=== PATIENT | male | born 1960 | race Caucasian/White ===

== ENCOUNTER 2019-08-14 06:33 | Inpatient (IN) | payer OTHER ==
[~2019-08-14] VITALS: Ht 180.3 cm; Wt 81.6 kg
[2019-08-14] VITALS (7 sets, daily range): BP systolic 133–179; BP diastolic 76–99
--- NOTE | ~2019-08-14 | H ---
[facility] [place] [address] HISTORY AND PHYSICAL Name: AL RG CÉSAR Room #: 364-P [facility] IN M.R.#: [id number] Admission: 08/14/19 Attend Phys: Claudine Lopez MD Discharge: Date of : 64 Report #: [id number] THIS REPORT FOR: //name// CC: Junito Lopez DATE OF SERVICE: 08/14/2019 PRIMARY CARE PHYSICIAN: Dr. Edward Alexis. CHIEF COMPLAINT: 1. Intractable nausea, vomiting and diarrhea since 11:00 p.m. last night. 2. Right inguinal pain, severe early this morning. HISTORY OF PRESENT ILLNESS: The patient is a very pleasant 59-year-old gentleman who informs me that he had dinner last night and started having some right lower quadrant abdominal discomfort, but it was not severe enough, so he went on to continue his routine, but at 11:00 p.m., he started with intractable nausea and vomiting and all night, he has had significant nausea, vomiting and early this morning, he started with severe pain in his right inguinal area. The patient informs me that in 05/2019, he was diagnosed with having an inguinal hernia by his primary care physician, but it was pretty small and he was supposed to see the surgery outpatient as just a routine appointment and this has not caused him any problems until this morning, he started having severe pain. Around 11:00 when the nausea and vomiting got worse, he had reached home from grocery store after riding his bike and he noticed that the swelling has gotten bigger and worse when, but the pain got significantly worse early this morning and therefore his called the EMS and was brought to the hospital for further evaluation. In the Emergency Room, the patient had a stat CT scan of abdomen and pelvis and that indicated a herniated small bowel in the inguinal canal with asymmetric dilatation of the herniated loop within the upper scrotum with gas and stool with stool-filled loops of small bowel within the abdomen and pelvis. The hernia appears to contain both cecum and terminal ileum with obstruction at this site and therefore, Surgery was consulted by ER physician and Dr. Pollock was contacted by Dr. Morgan and they plan to take him to the operating room later this afternoon. The patient informs me that he has not had any fever, shaking chills or night sweats and he has not had any dysuria, frequency or urgency of urination either. He informs me that review of systems is also negative for any cough, sputum production, chest pain or any dyspnea at rest or with exertion. He denies any hematemesis, melena, hematochezia or any peptic ulcer disease or health problems related to that in fact. PAST MEDICAL HISTORY: Significant for: 1. Hypertension. 2. Benign prostatic hypertrophy. [address] [address] HISTORY AND PHYSICAL Name: AL RG CÉSAR Room #: 364-P ADM IN M.R.#: [id number] Admission: 08/14/19 Attend Phys: Claudine Lopez MD Discharge: Date of : 64 Report #: [id number] 3. Hyperlipidemia. PAST SURGICAL HISTORY: None. FAMILY HISTORY: The patient informs me that he was adopted and he has heard that he has siblings, but has not been able to communicate with either one of them. His emergency contact is his , Ms. Rox Rg, . I made an attempt to call her; however, went to [facility]. ALLERGIES: The patient has no known drug allergies. PERSONAL AND SOCIAL HISTORY: The patient smoked 1/4 of a pack per day until few years ago and he does not drink alcohol and he does use marijuana, but informs me that he has not done it recently. REVIEW OF SYSTEMS: Ten point review of system was done and was completely negative other than nocturia and frequency of urination, but absolutely no dysuria, hematuria and the patient denied any CVS, TITLE CURATIVE SPECIALIST or respiratory symptoms. GI was positive for nausea, vomiting and diarrhea, but no hematemesis, melena or hematochezia. The patient denies any skin rash or breakdown. Right inguinal pain is severe, but since he has gotten to the ER, abdominal discomfort is significantly improved. PHYSICAL EXAMINATION: VITAL SIGNS: The patient had temperature of 36.6, heart rate 73, respirations 16, blood pressure 178/99, and pulse oximeter 99% on room air when he presented at 06:33. At the time of examination, his temperature 36.6, heart rate 76, respirations 13, blood pressure 133/85, pulse oximetry 99% on room air. GENERAL: Alert and oriented to time, place and person, very pleasant 59-year-old gentleman who likes to go on tangent when asked questions; however, is able to answer most of the questions appropriately and is not in any acute cardiopulmonary distress. HEENT: Normocephalic, atraumatic. Pupils are equally round and reactive to light. Conjunctivae mild injection, but no discharge or drainage noted. Sclerae nonicteric. Oropharynx is clear. Mucous membranes are moist. NECK: Supple, no JVD, no lymphadenopathy. HEART: S1, S2, regular. No murmur, no S3, no S4. LUNGS: Clear to auscultation bilaterally without any crackles or wheezes. No chest wall tenderness elicited. ABDOMEN: The patient has mild epigastric discomfort, but mostly right lower quadrant discomfort, which is very significant. The patient has indurated hard right inguinal hernia, which is not reducible and the herniation is all the way to the scrotal area and both lower extremities without any edema and pedal pulses are intact. NEUROLOGIC: Completely nonfocal. [facility] [address] [place] [address] HISTORY AND PHYSICAL Name: AL RG CÉSAR Room #: 364-P ADM IN [facility].#: [id number] Admission: 08/14/19 Attend Phys: Claudine Lopez MD Discharge: Date of : 64 Report #: [id number] LABORATORY DATA: The patient had lactic acid of 0.6 and CBC with WBC elevated at 14,500 and no bandemia noted, 76.8% neutrophils cells noted. Hemoglobin 12.8 with normal red cell indices and platelet counts are mildly elevated at 454, which appears to be reactive thrombocytosis. Chemistries indicate sodium 139, potassium 4.0, chloride 103, bicarbonate 27, BUN 19, creatinine 1.0, GFR 77, glucose is 99, calcium 9.85, total bilirubin 0.2, AST 21, ALT 21, alkaline phosphatase 74, total protein 7.6, albumin 3.9 and lipase is 117. CT scan of the abdomen and pelvis was done with the lung bases and heart normal; liver, gallbladder, spleen, pancreas, adrenal glands, kidneys are normal. The patient has distal esophagus and stomach are normal. The patient has significant wall thickening of the urinary bladder and also has focal luminal narrowing of the herniated bowel along the inguinal canal with asymmetric dilatation of the herniated loops within the upper scrotum. Both cecum and terminal ileum are seen in hernia with obstruction at the site of entry. More distal colon is unremarkable. No free fluid or free air noted in the abdomen. Aorta and IVC are normal. CT pelvis otherwise is unremarkable except prostate is enlarged with hypertrophy of the median lobe and findings consistent with bladder outlet obstruction. ASSESSMENT AND PLAN: 1. Partial small-bowel obstruction with acute herniation of the small bowel and cecum in the right inguinal canal. 2. Mild dehydration that has resolved. 3. Bladder outlet obstruction with prostate enlargement and bladder wall thickening. 4. The patient is full code. 5. Hypertension. 6. Hyperlipidemia. 7. Deep venous thrombosis and gastrointestinal prophylaxis. We will use subcutaneous pneumatic compression devices for deep venous thrombosis prophylaxis and for gastrointestinal prophylaxis. Pepcid has been started. PLAN OF CARE: 1. The patient has already been seen by Dr. Pollock according to Dr. Morgan and is planned to go to the surgery this afternoon. We will keep the patient n.p.o. and will start antibiotics, Rocephin and Flagyl to cover obstructed bowel and after the surgery, the patient probably should not need prolonged antibiotic course. We will follow the WBC count and local exam and will need to be at the critical care tele or postoperatively depending on how he does in surgery. We will discuss with Dr. Pollock and to decide whether the patient needs to be in ICU or CCU postoperatively. 2. For hypertension, I would hold amlodipine for now and we will start hydralazine 10 mg IV q. 6 hours p.r.n. for systolic blood pressure greater than [facility] [address] [place] [address] HISTORY AND PHYSICAL Name: AL RG Room #: 364-P [facility] IN M.R.#: [id number] Admission: 08/14/19 Attend Phys: Claudine Lopez MD Discharge: Date of : 64 Report #: [id number] 160. The patient currently is normotensive and pain is well controlled and so the focus will be on pain management. 3. Hyperlipidemia. We will hold atorvastatin at the present time. 4. Benign prostatic hypertrophy with chronic bladder outlet obstruction. We will continue tamsulosin and finasteride. A Dobson catheter order has been written perioperatively to avoid any renal damage with postobstructive pathology as well as the patient will need a Dobson during surgery. We will recommend him to see Urology outpatient and a full code order has been written. was not present at the bedside, so I could not discuss the plan of care with her and I did discuss plan of care with the nurse as well as RN taking care of the patient as well as the ER provider and the patient himself. By: [id number] Claudine Lopez MD /nt
--- NOTE | ~2019-08-14 | O ---
[facility] [place] [address] [address] [place] [address] OPERATIVE REPORT Name: AL ALSTON Room #: 364-P ADM IN M.R.#: [id number] Admission: 08/14/19 Attend Phys: Claudine oLpez MD Discharge: Date of : 64 Report #: [id number] THIS REPORT FOR: cc: Edward Alexis MD, Kirk D. MD Patterson, Jonathan D. MD ~ CC: Junito Lopez DATE OF SERVICE: 08/14/2019 PREOPERATIVE DIAGNOSIS: Incarcerated right inguinal hernia. POSTOPERATIVE DIAGNOSIS: Incarcerated right inguinal hernia. OPERATION: Laparoscopic repair of incarcerated right inguinal hernia with mesh. SURGEON: Junito Pollock MD. ANESTHESIA: General. ESTIMATED BLOOD LOSS: Minimal. SPECIMEN: None. DESCRIPTION OF PROCEDURE: After informed consent was obtained, the patient was brought to the operating room and placed supine. SCDs were placed and working, preoperative antibiotics were administered, general anesthesia was induced. The abdomen was prepped and draped in the usual sterile fashion after Dobson catheter was placed. A 10-mm incision was made above the umbilicus. Fascia was incised and a trocar was placed. Pneumoperitoneum was established. Left lower quadrant and right upper quadrant 5 mm ports were placed under direct vision. The patient was placed in the Trendelenburg position. He had incarcerated cecum and a small hernia defect. I was able to reduce this manually. I then examined the cecum. This had been incarcerated, but there was no evidence of strangulation. All of the bowel appeared viable. The peritoneum at the right ASIS was scored. Cautery dissection was made to incise the peritoneum and reflected inferiorly. I was able to dissect away the very large hernia sac from the cord structures. Cord structures were protected at all times. All the sac was reduced. I then inserted a medium Bard 3DMax mesh. It was tacked to Panchito's ligament with 2 absorbable tacks. I then reapproximated the peritoneum with the tacker as well. 100% of the mesh was covered. [facility] [address] [place] [address] OPERATIVE REPORT Name: AL ALSTON Room #: 364-P [facility] IN M.R.#: [id number] Admission: 08/14/19 Attend Phys: Claudine Lopez MD Discharge: Date of : 64 Report #: [id number] The ports were removed under direct vision. The fascia was closed with a [id number] 0 Vicryl. Skin was closed with 4-0 Monocryl. Incisions were sealed with Dermabond. COMPLICATIONS: None. DISPOSITION: The patient was taken to recovery in satisfactory condition. By: [id number] Junito Pollock MD /nt
[2019-08-14 07:34] LABS: ABSOLUTE NEUTROPHILS 11.1 thou/uL (1.4-8.2); BASOPHILS 0.7 % (0.0-2.0); EOSINOPHILS 1.8 % (0.0-3.0); HEMATOCRIT 38.9 % (42.0-52.0); HEMOGLOBIN 12.8 gm/dL (14.0-18.0); LYMPHOCYTES 14.4 % (24.0-44.0); MCH 30.8 pg (26.0-34.0); MCHC 32.9 g/dL (28.0-37.0); MCV 93.5 fL (80.0-100.0); MONOCYTES 6.3 % (1.0-8.0); PLATELET COUNT 454 thou/uL (150-400); POLYS 76.8 % (36.0-66.0); RBC 4.16 mil/uL (4.50-6.00); RDW 13.3 % (10.5-14.5); WBC 14.5 thou/uL (4.0-11.0)
[2019-08-14 07:41] LABS: CALCIUM 9.5 mg/dL (8.5-10.1)
[2019-08-14 07:47] LABS: ALBUMIN 3.9 g/dL (3.4-5.0); TOTAL BILIRUBIN 0.2 mg/dL (<0.1-1.0); TOTAL PROTEIN 7.6 g/dL (6.4-8.2)
[2019-08-14 08:05] LABS: URINE BILIRUBIN NEGATIVE (Negative); URINE BLOOD 1+ (Negative); URINE COLOR YELLOW; URINE GLUCOSE-RANDOM* NEGATIVE (Negative); URINE KETONES NEGATIVE (Negative); URINE LEUKOCYTES-REFLEX NEGATIVE (Negative); URINE NITRITE-REFLEX NEGATIVE (Negative); URINE PROTEIN (DIPSTICK) NEGATIVE (Negative); URINE UROBILINOGEN 0.2 E.U./dl (0.2-1.0)
[2019-08-14 08:30] LABS: URINE CLARITY HAZY
[2019-08-14 08:33] LABS: CASTS None Seen /LPF (None Seen); SQUAMOUS 0-3 Few /LPF (0-3)
[2019-08-14 08:34] LABS: AMORPHOUS PHOSPHATES Few /LPF (None Seen); BACTERIA-REFLEX None Seen /HPF (None Seen); URINE RBC 0-2 Rare /HPF (0-2); URINE WBC-REFLEX 0-5 Rare /HPF (0-5)
[2019-08-14 11:02] LABS: PROTIME 10.4 Seconds (9.3-11.4)
--- NOTE | 2019-08-14 14:33 | NUR ---
pt back from pacu, lap sites intact with dermabond. pt denies any pain. assessment and vitals signs completed. Call light in reach, bed at lowest level mwith alarm on.
--- NOTE | 2019-08-14 16:05 | NUR ---
1045 pt admitted to 364. Pt alert and oriented X4. Complains of inguinal pain 8/10 and nausea, denies any other symptoms. pt oriented to room, fall consent signed. Admission and assessment completed. Call light in reach, bed at lowest level. 1200 pt taken down to OR
--- NOTE | 2019-08-15 02:34 | NUR ---
ASSUMED PT CARE AT 1900. LAP SITES DRY AND INTACT. SCROTUM HAS SIGNIFICANT SWELLING. PT REPORTS MINIMAL PAIN. BARRAGAN PATENT WITH GOOD OUTPUT. FLUIDS AND ANTIBIOTICS RUNNING PER ORDER. UP TO TOILET WITH STANDBY ASSIST. CURRENTLY RESTING COMFORTABLY IN BED. WILL CONTINUE TO MONITOR.
[2019-08-15 04:37] VITALS: BP 149/81
[2019-08-15 06:07] LABS: ABSOLUTE NEUTROPHILS 9.5 thou/uL (1.4-8.2); BASOPHILS 0.5 % (0.0-2.0); EOSINOPHILS 0.9 % (0.0-3.0); HEMATOCRIT 37.4 % (42.0-52.0); HEMOGLOBIN 12.1 gm/dL (14.0-18.0); LYMPHOCYTES 18.4 % (24.0-44.0); MCH 30.3 pg (26.0-34.0); MCHC 32.3 g/dL (28.0-37.0); MCV 93.8 fL (80.0-100.0); MONOCYTES 7.4 % (1.0-8.0); PLATELET COUNT 383 thou/uL (150-400); POLYS 72.8 % (36.0-66.0); RBC 3.99 mil/uL (4.50-6.00); RDW 13.4 % (10.5-14.5)
[2019-08-15 06:24] LABS: ALBUMIN 2.9 g/dL (3.4-5.0); CALCIUM 8.3 mg/dL (8.5-10.1); CREATININE 0.8 mg/dL (0.7-1.3); MAGNESIUM 1.8 mg/dL (1.8-2.4); PHOSPHORUS 3.1 mg/dL (2.5-4.9); POTASSIUM 3.6 mmol/L (3.5-5.1); TOTAL BILIRUBIN 0.6 mg/dL (<0.1-1.0); TOTAL PROTEIN 5.8 g/dL (6.4-8.2)
[2019-08-15 07:14] VITALS: BP 141/75
[2019-08-15 15:13] VITALS: BP 145/74
[2019-08-15 19:26] VITALS: BP 122/75
--- NOTE | 2019-08-15 21:16 | NUR ---
bladder scan done after first void post f/c removal this AM. residual emptied with straight cath resulting in 700ml drainage. repeat bladder scan done at 1800 post void of 250ml, 625ml drained from bladder at 1830. F/U scan endorsed to outside contractor sales at 1900 during shift end report.
[2019-08-16 04:36] VITALS: BP 140/75
--- NOTE | 2019-08-16 05:02 | NUR ---
PT MAKING POOR PROGRESS TOWARDS GOALS. PT REPORTEDLY HAVING SMALL AMOUNT OF URINE OUTPUT BUT LARGE AMOUNTS PER BLADDER SCANS. PT BLADDER SCANNED AFTER VOIDING LAST NIGHT. BARRAGAN PLACED, PER PROTOCOL.
[2019-08-16 05:35] LABS: ABSOLUTE NEUTROPHILS 7.5 thou/uL (1.4-8.2); BASOPHILS 0.5 % (0.0-2.0); HEMATOCRIT 34.5 % (42.0-52.0); HEMOGLOBIN 11.5 gm/dL (14.0-18.0); LYMPHOCYTES 20.2 % (24.0-44.0); MCH 31.1 pg (26.0-34.0); MCHC 33.2 g/dL (28.0-37.0); MCV 93.7 fL (80.0-100.0); MONOCYTES 8.8 % (1.0-8.0); PLATELET COUNT 333 thou/uL (150-400); POLYS 68.5 % (36.0-66.0); RBC 3.68 mil/uL (4.50-6.00); RDW 13.3 % (10.5-14.5); WBC 10.9 thou/uL (4.0-11.0)
[2019-08-16 06:02] LABS: ALBUMIN 2.7 g/dL (3.4-5.0); CALCIUM 8.5 mg/dL (8.5-10.1); CREATININE 0.8 mg/dL (0.7-1.3); MAGNESIUM 1.8 mg/dL (1.8-2.4); PHOSPHORUS 3.2 mg/dL (2.5-4.9); POTASSIUM 3.8 mmol/L (3.5-5.1); TOTAL BILIRUBIN 0.4 mg/dL (<0.1-1.0); TOTAL PROTEIN 5.7 g/dL (6.4-8.2)
[2019-08-16 07:07] VITALS: BP 147/85
[2019-08-16] MEDS ORDERED: PROSCAR 5MG TABL5 MG PO (13:55)
[2019-08-16] MEDS ORDERED: FLOMAX0.4 MG PO (13:55)
--- NOTE | 2019-08-16 14:31 | NUR ---
INITIAL ASSESSMENT/DISCHARGE NOTE: BRETT reviewed chart and spoke with nursing and attending physician. Pt was admitted from home. Pt is s/p lap hernia repair surgery. Pt is medically stable to discharge home. Pt to discharge home with cárdenas catheter in place. SW met with pt at bedside. All lights off in pt's room. Introduced role of SW. Pt is alert/orientated x 4. Pt reports he lives at home with his . Prior to admission, pt was independent with ADLs. No use of DME. Pt's PCP is Dr. Edward Alexis. BRETT discussed option for arranging HH services to asist with cárdenas care. Pt declines HH and states that he will be okay at home and he and his do not want other people coming into their home. Pt states he will have transportation home. BRETT updated nursing and attending physician of pt declining HH. No SW needs identified at this time, but is available to assist should needs arise.
[2019-08-16 15:35] VITALS: BP 153/92
[2019-08-16 16:44] VITALS: BP 153/92
--- NOTE | 2019-08-16 18:03 | NUR ---
Assumed care approx 0700 this AM. Orders for patient to keep cárdenas cath obtained and to follow up outpatient with urology. Discharge orders obtained. IV dc'd. Discharge packet thoroughly discussed with patient. Pt taught cárdenas cath care and postop instructions post hernia repair. A leg bag was ordered from central supply and attached to catheter tubing so patient can leave with bag underneath clothes connected to leg. Pt taught how to empty the bag and reminded once again how to properly clean the catheter. Pt told about important doctor follow up appointments that he needs to schedule and attend. Pts neighbor called to pick patient up. Pts neighbor instructed of the importance for the patient to follow up with his primary care provider and to make an appointment with the urologist that is highlighted in the discharge packet. Pt left unit with neighbor approx 1800 with all belongings.
[2019-08-16 18:12] VITALS: BP 153/92
== END 2019-08-16 18:00 | disposition home or self-care (01) | DRG 351 ==
LOC: ER 06:33 → 3W 09:45 → EROBS 09:45 → 3W 10:34
PROVIDERS: Emergency Medicine; Surgery; ADMIT Internal Medicine
PROC: 0YU54JZ Supplement Right Inguinal Region with Synthetic Substitute, Percutaneous Endoscopic Approach (ICD-10-PCS; principal; 2019-08-14)
DX: K40.30 Unilateral inguinal hernia, with obstruction, without gangrene, not specified as recurrent (principal); N13.8 Other obstructive and reflux uropathy; R33.9 Retention of urine, unspecified; F17.210 Nicotine dependence, cigarettes, uncomplicated; I10 Essential (primary) hypertension; E78.5 Hyperlipidemia, unspecified; E86.0 Dehydration; N40.1 Benign prostatic hyperplasia with lower urinary tract symptoms; Z79.899 Other long term (current) drug therapy
CPT/HCPCS: 10879; 50010; 50101; 50249; 50411; 50455; 50507; 50555; 50687; 52265; 52266; 53307; 53314; 54118; 56525; 56526; 62110; 62900; 70005